=== PATIENT | male | born 1970 | race Two or more races ===

== ENCOUNTER 2022-10-29 10:05 | Observation (INO) ==
--- NOTE | 2022-10-29 10:23 | Emergency Department Note ---
Impression & Plan NSTEMI (non-ST elevated myocardial infarction), Tobacco abuse ED Provider Note Name: ELIO HOLGUIN Age: 52 Sex: M Arrives Via: Ambulance Informant: Patient. 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 Patient does have a history of smoking but denies other past medical history. Denies family past medical history. Patient only speaks [place] and thus toll relief operator was used. Initial EKG unremarkable patient is without pain and is comfortable. He is agreeable to hospitalization on arrival given I wanted to make sure that he was going to be agreeable with this while the toll relief operator was there. Initial labs are remarkable for an elevated troponin. This is consistent with his ACS that his symptoms are quite concerning for. He has a mildly elevated D- dimer. This is nonspecific given his minimally elevated he has no further chest pain he has no shortness of breath he has no hypoxia he has no calf pain or swelling. Patient does not have symptoms consistent with a dissection. I do not think that CTA would be indicated at this time especially given he will likely need heparin anyways. I discussed the case with on-call cardiology Dr. Sims who agreed with starting heparin. I did obtain a repeat EKG which is continued stable and no further PACs. Patient was discussed with hospitalist who will bring the patient in for further management. Prior Medical Record and Triage/Nursing Notes reviewed by Me Extensive discussion with EMS and review of previous hospital EMS record and rhythm strips Differentials:ACS, PE, dissection, pneumothorax, abdominal infection, multiple other pathologies considered. Vital Signs: reviewed and remarkable for no significant abnormalities Interventions: Heparin bolus and drip Labs:Reviewed and remarkable for elevated troponin mildly elevated D-dimer Imagin view chest x-ray interpreted by me no pneumothorax, lobar infiltrate nor enlarged mediastinum EKG:As per my interpretation. Indication chest pain. Normal sinus rhythm at 66 bpm and a QTC of 419. There is no ectopy nor ischemia. Cardiac/Tele Monitoring: Cardiac Monitoring: An Order was placed for continuous cardiac monitoring. The monitor shows a rate of 65 with a normal sinus rhythm. Consults:Dr Bethany FRANKLIN Cardiology, Dr Melvi FRANKLIN Hospitalist Plan: Disposition:Hospitalization. Condition: Good History of Present Illness:52-year-old gentleman arrives for evaluation of chest pain. 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 He notes he has been having on and off chest pains for the last few months. Today however he developed severe crushing left chest pain into his left arm. Denies any nausea, vomiting, syncope, shortness of breath, neck pain or other concerning signs or symptoms. Unknown was called and he was given aspirin and sublingual nitro by EMS. This resulted in resolution of his pain. Patient states he is no longer having any pain. He has no history of CAD. He states he takes no medications. He admits that he smokes daily. Denies any family history of CAD. Patient does travel constantly for his job. Denies other symptoms. Past Medical History:Denies medical history Past Surgical History:Denies previous surgeries Family History:Denies family history of cardiac disease Social History:, daily smoker, long-bus driver supervisor, lives in [place], speaks only [place] Home Medications:none Allergies:NKDA Vitals:Blood Pressure: 120/60, Pulse 70, RR 17, T 36.7C, O2 98% on RA Physical Exam: GENERAL: Patient is well appearing and in no acute distress. EYES: No scleral icterus, unremarkable pupils. ENT: Mucous membranes moist, no nasal congestion. NECK: No masses appreciated, nomeningismus, trachea is midline. RESPIRATORY: No dyspnea. Clear to auscultation and equal bilaterally. No wheeze, no rhonchi. CARDIOVASCULAR: Regular rate and rhythm.No murmurs, rubs, gallops appreciated. GASTROINTESTINAL: Abdomen soft, non-tender, no peritonitis. EXTREMITIES: Normal motion all extremities, no cyanosis, no edema. NEUROLOGIC: Alert and oriented, no focal weakness SKIN: No rash, no jaundice, no diaphoresis. PSYCH: Appropriate GCS: 15 ED Course: Times/Reassessments: Patient stable on repeat evaluations Critical Care: I have personally spent 35 minutes of critical care time in the direct management of this patient. NSTEMI started on heparin. This was a life/limb threatening event. This 35 minutes is in excess of all separately billable procedures. Francisco Graham MD Past Med/Surg History Social History Smoking Status: Current every day smoker Preferred Language: [place] Korean Communication Tools: IPad Feels Safe at Home: Yes Allergies Allergies Allergy/AdvReac Type Severity Reaction Status Date / Time No Known Allergies Allergy Unverified 10/29/22 11:39 Home Meds Home Medications Medication Instructions Recorded Confirmed No Known Home Medications 10/29/22 10/29/22 Results & Data (ED) Vital Signs Vital Signs - 24 hr 10/29/22 10:10 10/29/22 10:19 10/29/22 11:03 Temperature 36.7 C Temperature Source Oral Pulse Rate 78 74 65 Respiratory Rate 20 19 17 Respiratory Effort / Characteristics Non-Labored Spontaneous Respiratory Depth Normal Respiratory Pattern Regular Blood Pressure 132/72 132/72 125/76 Blood Pressure Mean 92 92 92 Blood Pressure Position Semi-fowlers Pulse Oximetry 97 98 Oxygen Delivery Method Room Air Sepsis Recent Fever Within 48 Hours No Sepsis New/Unexplained Change in Mental Status N/A Sepsis Action Taken by Nursing No Action Required 10/29/22 12:30 Temperature Temperature Source Pulse Rate 77 Respiratory Rate 17 Respiratory Effort / Characteristics Respiratory Depth Respiratory Pattern Blood Pressure 152/95 H Blood Pressure Mean 114 Blood Pressure Position Pulse Oximetry 98 Oxygen Delivery Method Room Air Sepsis Recent Fever Within 48 Hours Sepsis New/Unexplained Change in Mental Status Sepsis Action Taken by Nursing Laboratory Data 10/29/22 10:25 10/29/22 10:25 Lab Results 10/29/22 10/29/22 10/29/22 Range/Units 10:25 10:25 10:25 WBC 6.61 (4.8-10.8) K/ul RBC 5.10 (4.70-6.10) M/uL Hgb 15.8 (14.0-18.0) g/dl Hct 46.1 (42.0-52.0) % MCV 90.4 (80.0-100.0) fL MCH 31.0 (25.0-34.0) pg MCHC 34.3 (32.0-36.0) g/dL RDW Std Deviation 44.3 (36.4-46.3) fL RDW Coeff of Fernando 13.2 (11.5-14.5) % Plt Count 226 (130-400) K/uL MPV 9.9 (9.4-12.4) fL Immature Gran % (Auto) 0.3 % Neut % (Auto) 55.2 % Lymph % (Auto) 34.5 % Marshall % (Auto) 8.3 % Eos % (Auto) 1.1 % Baso % (Auto) 0.6 % Neut # (Auto) 3.65 (1.40-6.50) K/uL Lymph # (Auto) 2.28 (1.2-3.4) K/uL Marshall # (Auto) 0.55 (0.11-0.59) K/uL Eos # (Auto) 0.07 (0-0.50) K/uL Baso # (Auto) 0.04 (0-0.2) K/uL Immature Gran # (Auto) 0.02 (0.01-0.20) K/uL PT 12.3 H (9.0-12.0) Seconds INR 1.2 H (0.9-1.1) APTT 26.3 (21.0-31.0) Seconds PTT Ratio 1.0 D-Dimer 580 H* (0-500) ug/L FEU Sodium 138 (136-145) mmol/L Potassium 3.8 (3.5-5.1) mmol/L Chloride 110 H (98-107) mmol/L Carbon Dioxide 23 (21-32) mmol/L Anion Gap 5 (3-11) BUN 12 (6-23) mg/dl Creatinine 0.99 (0.6-1.4) mg/dl Est Cr Clr Drug Dosing 106.4 ml/min Est GFR ( Amer) 101.1 ml/min Est GFR (Non-Af Amer) 87.2 ml/min BUN/Creatinine Ratio 12.1 (10-20) Glucose 96 (70-99(Fasting)) mg/dl Calcium 8.7 (8.5-10.1) mg/dl Magnesium 1.8 (1.7-2.4) mg/dl Total Bilirubin 0.7 (0.2-1.0) mg/dl Direct Bilirubin 0.1 (0-0.2) mg/dl AST 17 (13-39) U/L ALT 18 (7-52) U/L Alkaline Phosphatase 84 (34-104) U/L Troponin I High Sens 189.2 H* (0-20) pg/ml Total Protein 6.6 (6.0-8.3) gm/dl Albumin 4.0 (3.4-5.0) gm/dl Lipase 15 (11-82) U/L TSH (0.300-4.500) uIu/ml SARS-CoV-2, RNA, NAAT (NEGATIVE) 10/29/22 10/29/22 Range/Units 10:25 10:45 WBC (4.8-10.8) K/ul RBC (4.70-6.10) M/uL Hgb (14.0-18.0) g/dl Hct (42.0-52.0) % MCV (80.0-100.0) fL MCH (25.0-34.0) pg MCHC (32.0-36.0) g/dL RDW Std Deviation (36.4-46.3) fL RDW Coeff of Fernando (11.5-14.5) % Plt Count (130-400) K/uL MPV (9.4-12.4) fL Immature Gran % (Auto) % Neut % (Auto) % Lymph % (Auto) % Marshall % (Auto) % Eos % (Auto) % Baso % (Auto) % Neut # (Auto) (1.40-6.50) K/uL Lymph # (Auto) (1.2-3.4) K/uL Marshall # (Auto) (0.11-0.59) K/uL Eos # (Auto) (0-0.50) K/uL Baso # (Auto) (0-0.2) K/uL Immature Gran # (Auto) (0.01-0.20) K/uL PT (9.0-12.0) Seconds INR (0.9-1.1) APTT (21.0-31.0) Seconds PTT Ratio D-Dimer (0-500) ug/L FEU Sodium (136-145) mmol/L Potassium (3.5-5.1) mmol/L Chloride (98-107) mmol/L Carbon Dioxide (21-32) mmol/L Anion Gap (3-11) BUN (6-23) mg/dl Creatinine (0.6-1.4) mg/dl Est Cr Clr Drug Dosing ml/min Est GFR ( Amer) ml/min Est GFR (Non-Af Amer) ml/min BUN/Creatinine Ratio (10-20) Glucose (70-99(Fasting)) mg/dl Calcium (8.5-10.1) mg/dl Magnesium (1.7-2.4) mg/dl Total Bilirubin (0.2-1.0) mg/dl Direct Bilirubin (0-0.2) mg/dl AST (13-39) U/L ALT (7-52) U/L Alkaline Phosphatase (34-104) U/L Troponin I High Sens (0-20) pg/ml Total Protein (6.0-8.3) gm/dl Albumin (3.4-5.0) gm/dl Lipase (11-82) U/L TSH 1.048 (0.300-4.500) uIu/ml SARS-CoV-2, RNA, NAAT NEGATIVE (NEGATIVE) Administered Medications Heparin Sodium/Dextrose (Heparin Sodium/Dextrose) 25,000 units in 500 mls @ 20 mls/hr IV .Q24H [facility]; Protocol Stop: 11/28/22 13:14 Last Admin: 10/29/22 13:58 Dose: 1,000 units/hr, 20 mls/hr Documented By: CA Co-signed By: LUNA Discontinued Medications Heparin Sodium (Porcine) (Heparin Sod (Porcine) 1000 Unit/Ml) 1 units IV NOW ONE Stop: 10/29/22 13:07 Last Admin: 10/29/22 13:57 Dose: 4,000 units Documented By: CA Co-signed By: LUNA Imaging Data Radiologist's Impression: Chest X-Ray 10/29/22 10:09 XR chest 1V portable HISTORY: Atypical chest pain COMPARISON: None. FINDINGS: The lungs are clear. Cardiac silhouette is normal in size. No pleural effusions. No pneumothorax. IMPRESSION: No acute process. ACT 112: Negative or not required by law. Electronically signed by: Niels Lawler M.D. 10/29/2022 10:49 AM Discharge Plan Visit Data Chief Complaint: Chest Pain Stated Complaint: CHEST PAIN ED Provider: Francisco Graham Discharge Problem: NSTEMI (non-ST elevated myocardial infarction), Tobacco abuse Patient Disposition: Admitted As Inpatient Discharge Instructions Interventions: ED Discharge Assessment Last Done: 10/29/22 14:05
[2022-10-29 10:48] LABS: Basophils # (auto) 0.04 K/uL (0-0.2); Basophils % (auto) 0.6 %; Eosinophils # (auto) 0.07 K/uL (0-0.50); Eosinophils % (auto) 1.1 %; Hematocrit (blood only) 46.1 % (42.0-52.0); Hemoglobin 15.8 g/dl (14.0-18.0); Immature Granulocytes # (auto) 0.02 K/uL (0.01-0.20); Immature Granulocytes % (auto) 0.3 %; Lymphocytes # (auto) 2.28 K/uL (1.2-3.4); Lymphocytes % (auto) 34.5 %; Mean Corpuscular Hgb Conc 34.3 g/dL (32.0-36.0); Mean Corpuscular Volume 90.4 fL (80.0-100.0); Mean Platelet Volume 9.9 fL (9.4-12.4); Monocytes # (auto) 0.55 K/uL (0.11-0.59); Monocytes % (auto) 8.3 %; Neutrophils # (auto) 3.65 K/uL (1.40-6.50); Neutrophils % (auto) 55.2 %; Platelet Count 226 K/uL (130-400); RDW Coefficient of Variation 13.2 % (11.5-14.5); RDW Standard Deviation 44.3 fL (36.4-46.3); White Blood Count 6.61 K/ul (4.8-10.8)
--- NOTE | 2022-10-29 10:50 | XRay Report ---
XR chest 1V portable HISTORY: Atypical chest pain COMPARISON: None. FINDINGS: The lungs are clear. Cardiac silhouette is normal in size. No pleural effusions. No pneumot horax. IMPRESSION: No acute process. ACT 112: Negative or not required by law. Electronically signed by: Niels Lawler M.D. 10/29/2022 10:49 AM
[2022-10-29 11:05] LABS: INR 1.2 (0.9-1.1); Partial Thromboplastin Time 26.3 Seconds (21.0-31.0); Prothrombin Time 12.3 Seconds (9.0-12.0)
[2022-10-29 11:20] LABS: Troponin I High Sensitivity 189.2 pg/ml (0-20)
[2022-10-29 11:24] LABS: D Dimer 580 ug/L FEU (0-500)
[2022-10-29 12:28] LABS: Bilirubin Direct 0.1 mg/dl (0-0.2); Bilirubin,Total 0.7 mg/dl (0.2-1.0); Calcium 8.7 mg/dl (8.5-10.1); Magnesium 1.8 mg/dl (1.7-2.4); Potassium 3.8 mmol/L (3.5-5.1)
[2022-10-29 12:34] LABS: BUN Creatinine Ratio 12.1 (10-20); Creatinine Clr Calc Pharmacy 106.4 ml/min; Est GFR (African American) 101.1 ml/min; Est GFR (Non-African American) 87.2 ml/min; Total Protein 6.6 gm/dl (6.0-8.3)
[2022-10-29] MEDS ORDERED: Heparin IV Adult Wt-Based Standard WITH Bolus Protocol IV STA (12:42)
--- NOTE | 2022-10-29 12:49 | History & Physical Report ---
Date of Service October 29, 2022 Assessment & Plan (1) NSTEMI (non-ST elevated myocardial infarction): Plan: -Admit to the PCU/tele -The patient is currently afebrile, hemodynamically stable, and stable on RA -Patient called EMS for chest pain, S/P 324 mg PO aspirin and one dose of SL nitro with resolution of his symptoms. ECG is without acute ST segment or T-wave changes but his initial high sensitivity trop is elevated at 189. -Cardiology was consulted by the ED staff and was in agreement with starting a Heparin Drip which is currently running -The patient denies a previous history of HTN, DM, and hyperlipidemia but is a daily smoker -Will start him on 25 mg PO BID Metoprolol Tartrate, High Dose Statin therapy with 80 mg PO Lipitor daily, 81 mg PO Aspirin daily (starting tomorrow), 300 mg Plavix Now followed by 75 mg PO daily, and will continue him on the Heparin drip for now. -Will order prn SL Nitro for chest pain; explained to the patient that he should let us know if any of his symptoms return so we can re-evaluate him -Continue to monitor on tele, will obtain a TTE for further evaluation, trend troponin q6h overnight -Will start the patient of 20 mg IV famotidine daily to prevent GI bleeds with his previous history. Instructed the patient to monitor for any signs of bleeding and let us know immediately if he would notice any. -Will order am lipid panel and A1C -BL SCDs + current anticoagulation for DVT PPX -AM CBC, BMO, MAG, PT/INR, A1C and lipid panel (2) Tobacco abuse: Plan: -Smokes approximately 1 PPD -Continue to stress smoking cessation -Nicotine patch ordered Plan The patient was seen with and discussed with Dr. Ogden at the time of the admission History of Present Illness Chief Complaint: Chest pain Primary Care Provider: NO PCP Amirah is a 52 year old (S[place]an is his first language) male daily smoker with no other previous PMH who presented to the [facility] ED on 10/29/22 with a chief complaint of chest pain. Per the ED staff, the patient is a long-auto hauler from [place]. The patient was brought in by EMS, prior to arrival he was given 324 mg PO aspirin and 1 SL nitro and his symptoms resolved. In the ED the patient was found to be afebrile, hemodynamically stable, and stable on RA. Labs were remarkable for a CBC WNL, INR of 1.2, D-dimer of 580,cr of 0.99, LFTs WNL, initial high sensitivity trop of 189, chloride of 110, AG of 5 with a bicarb of 23, stable electrolytes, TSH WNL, and negative covid screen. His ECG showed Normal sinus rhythm Normal ECG When compared with ECG of 29-OCT-2022 10:17, (unconfirmed) Premature ventricular complexes are no longer Present. Chest xray was read as no acute process. The ED staff spoke with Cardiology who was in agreement with starting the patient on a Heparin drip. At the time of the exam the patient was resting comfortably in bed in no acute distress. A video mixing operator was used to communicate with the patient during the history and exam. He states that he began to experience an 8/10, burning pain on the left side of his chest earlier this morning. He states that the pain also radiated into his left arm. He states that he has never had this pain before and he did not take any medications to treat his symptoms. When asked, he denies previous chronic medical problems such as HTN, hyperlipidemia, DM, and asthma. He states that he was treated with an antibiotic approximately 2-3 weeks ago, he is unable to explain what type of infection he was treated for. He denies being on chronic medications either prescription or OTC. He is a current smoker, smoking 1PPD and denies alcohol and other recreational drug use. The patient confirms that he is currently without symptoms at the time of the exam. We explained that he had a heart attack and the next steps in treatment would be to start IV heparin for anticoagulation, start a Beta Vernon to help control his HR and help to prevent dangerous arrhythmias, a statin to help reduce his cholesterol, and aspirin to help with possible blockages in his coronary arteries. We explained that since his ECG is currently normal and his symptoms have resolved there is no emergent need for him to have a Heart Cath at this time. We explained that this procedure is important to help look for any treat any blockages in his coronary arteries. We explained the general steps of a heart catheterization and explained that it is not an invasive procedure like open heart surgery. The patient was still hesitant to stay as he said he was feeling better and lives close to the hospital if he needed to come back. We strongly recommended he stay to begin medical therapy and to be monitoring on telemetry as a new WA increases his risk of dangerous arrhythmias which could lead to increased heart damage and even . We explained that he would not be getting a heart cath immediately and reiterated that we would be initiating medical therapy and monitoring him. We explained that if he were to have ret urning symptoms of concerning changes in his labs or heart rhythm, these would be an indication for an emergent heart cath. We explained that if he were to leave and need to come back he would likely have to wait in the waiting room or come back from ambulance, either of which could delay life-saving treatment. The patient stated that he has a close friend who is a Physician and he wanted to speak with his friend before making a decision. We offered to stay and speak with he and his friend regarding the situation and he was in agreement. After discussions with his friend the patient is now in agreement with being admitted. He states that he is in agreement with all of our recommendations and is fine with a heart cath if needed. He denies previous allergies to any medications or other substances. He denies recent fevers, chills, headache, new cough, abdominal pain, nausea, vomiting, dysuria, hematuria and recent trauma. When asked about bloody bowel movements or melena he states that in the past he has had blood in his bowels when he drinks alcohol. He denies recent bright red blood in his stool. When asked about melena or dark stool he states that his stool may be darker but is not sure. We discussed code status, the patient wishes to be a full code. If he could not make medical decisions himself he would want is (Amanda [phone]) to make decisions. When asked, he stat es that his speaks Romanian and would not need an housekeeper cleaning cooking if we would need to call her. Please refer to Dr. Ogden's attestation for any changes to the treatment plan Allergies Allergy/AdvReac Type Severity Reaction Status Date / Time No Known Allergies Allergy Unverified 10/29/22 11:39 Home Medications Medication Instructions Recorded Confirmed Type No Known Home Medications 10/29/22 10/29/22 History Past Med/Surg History Social History Smoking Status: Current every day smoker Cigarettes Per Day: 20; Second Hand Exposure: No; Do You Dip or Chew Tobacco: No; Tobacco Cessation Education Requested by Patient: No Hx Alcohol Use: No Hx Substance Use: No Preferred Language: [place] Communication Ability: Effective Communication Tools: IPad, Language Line Wool Brusher, Facial Expression, Physical Gestures and Lip Movement/Reading Wool Brusher Required: Yes and Voice Beliefs That Will Affect Care: None Current Living Situation: Spouse Other Information That Helps Us Care for You: No Feels Safe at Home: Yes Safety Concerns: Feels Safe At This Time Assistive Devices: None Review of Systems Review of Systems: Denies current fever, chills, headache, changes in vision, hearing, taste, and smell, chest pain, SOB, cough, abdominal pain, nausea, vomiting, diarrhea, hematemesis, melena, dysuria, hematuria, and recent falls. All systems have been reviewed and are otherwise negative. Physical Exam Physical Exam: Physical Exam: General: In no acute distress, stated age, well-nourished, good hygiene HEENT: Normocephalic, atraumatic, no scleral icterus, pupils around round, symmetrical, and reactive to light, moist mucus membranes, trachea midline, no thyromegaly Chest/Pulm: No respiratory distress, symmetrical chest expansion, clear breath sounds throughout Cardiac: RRR, no murmurs noted Abdomen: Negative for ascites and bruising, normoactive bowel sounds, soft, non-tender to palpation throughout Musculoskeletal: Symmetrical and without signs of acute trauma, upper and lower extremities with full ROM, no atrophy, spasticity, or flaccidity Extremities: Radial, dorsalis pedis, and posterior tibial pulses are intact and symmetrical, no edema noted in the BL LE's Skin: Warm, dry, no rashes , lesions, or scars noted Neuro: Alert and oriented to person, place, month, year, no focal defects, CN II-XII tested and intact, no tremors noted Psych: No acute distress, calm and cooperative during the exam Results & Data Results & Data ([facility]) Vital Signs (Past 12 Hours) Vital Signs Temp Pulse Resp BP Pulse Ox O2 Del Method 10/29/22 12:30 77 17 152/95 H 98 Room Air 10/29/22 11:03 65 17 125/76 98 10/29/22 10:19 74 19 132/72 10/29/22 10:10 36.7 C 78 20 132/72 97 Room Air Laboratory Results Abnormal lab results 10/29/22 10/29/22 Range/Units 10:25 10:25 PT 12.3 H (9.0-12.0) Seconds INR 1.2 H (0.9-1.1) D-Dimer 580 H* (0-500) ug/L FEU Chloride 110 H (98-107) mmol/L Troponin I High Sens 189.2 H* (0-20) pg/ml Diagnostic Findings Chest X-Ray 10/29/22 10:09 XR chest 1V portable HISTORY: Atypical chest pain COMPARISON: None. FINDINGS: The lungs are clear. Cardiac silhouette is normal in size. No pleural effusions. No pneumothorax. IMPRESSION: No acute process. ACT 112: Negative or not required by law. Electronically signed by: Niels Lawler M.D. 10/29/2022 10:49 AM ECG Additional Comments: Normal sinus rhythm Normal ECG When compared with ECG of 29-OCT-2022 10:17, (unconfirmed) Premature ventricular complexes are no longer Present Code Status & VTE Plan Code Status Full Code Supervising Physician Co-Signing Physician Notes I personally saw and examined the patient. I verified all herman points and agree with Lukas Fernandes PA-C with the following exceptions and/or additions: 52 year old male admission for resting ches pain. High risk factors for WA and elevated troponin in the ER. Communicated with patient in conjunction with PA using iPad [place] mixing operator. Extensive conversation with patient explain high risk of discharge at this time as he initial said he felt fine and wanted to leave against medical advice. Eventually he was able to discuss with his primary outpatient physician and convinced the patient to stay. O/E A&Ox3, HS1+2, no murmurs, RRR, occasional PVC on monitor, Chest CTAB, Abdo SNT, no pedal edema A/P NSTEMI - ASA, Clopidogrel, metoprolol, heparin low dose IV with bolus, atorvastatin, TTE, HbA1C and lipid panel with AM labs. Agree with famotidine for GI prophlaxis given history. Discussed cardiac catheterization likely to occur on Monday but he should let us know if his chest pain reoccurs, consult cardiology for tomorrow. PG Care Time/CCT Total # of Minutes Spent Total Time Spent with Patient: Total time spent is greater than 50% in coordination of care (as documented) at patient's floor/unit and/or counseling patient: C[place] [address] INT INP/OBS CARE MIN Patient Type Established Medical Decision Making High Complexity Diagnoses NSTEMI (non-ST elevated myocardial infarction) I21.4 Tobacco abuse Z72.0
[2022-10-29] MEDS ORDERED: HEPARIN SOD (PORCINE) 1000 UNIT/ML IV ONE ×3 (12:57→20:45)
[2022-10-29] MEDS ORDERED: HEPARIN SODIUM/DEXTROSE 25,000 UNITS/500 ML BAG IV SCH (13:00)
[2022-10-29] MEDS ORDERED: Heparin IV Adult Wt-Based Standard WITH Bolus Protocol IV SCH (13:00)
[2022-10-29] MEDS: HEPARIN SODIUM/DEXTROSE 25,000 UNITS/500 ML BAG IV SCH (13:58)
[2022-10-29] MEDS ORDERED: Heparin IV Adult Wt-Based Low-Dose WITH Bolus Protocol IV STA (14:00)
[2022-10-29] MEDS ORDERED: NITROGLYCERIN SL 0.4 MG/TAB TAB SL PRN (14:15)
[2022-10-29] MEDS ORDERED: ACETAMINOPHEN 325 MG TAB PO PRN (14:15)
[2022-10-29] MEDS ORDERED: CLOPIDOGREL BISULFATE 300 MG TAB PO STA (14:34)
[2022-10-29] MEDS: ATORVASTATIN 40 MG TAB PO SCH (17:46)
[2022-10-29] MEDS: FAMOTIDINE 20 MG in SYRINGE 3 ML IV SCH (17:46)
[2022-10-29] MEDS: METOPROLOL TARTRATE 25 MG TAB PO SCH ×2 (17:47→20:03)
[2022-10-29] MEDS: NICOTINE 21 MG/24 HR TDSY TD SCH (18:53)
--- NOTE | 2022-10-29 19:31 | XCELERA ---
[id number]
[2022-10-29 19:40] LABS: Partial Thromboplastin Ratio 1.2; Partial Thromboplastin Time 33.3 Seconds (21.0-31.0)
[2022-10-29] MEDS ORDERED: POTASSIUM CHLORIDE CRTAB 20 MEQ TABCR PO STA (21:45)
[2022-10-29] MEDS ORDERED: MAGNESIUM SULFATE / D5W 1 GM/100 ML BAG IV ONE (21:45)
[2022-10-30 03:38] LABS: INR 1.1 (0.9-1.1); Partial Thromboplastin Ratio 1.4; Partial Thromboplastin Time 38.2 Seconds (21.0-31.0); Prothrombin Time 11.8 Seconds (9.0-12.0)
[2022-10-30 06:41] LABS: Hematocrit (blood only) 46.4 % (42.0-52.0); Hemoglobin 16.6 g/dl (14.0-18.0); Mean Corpuscular Hemoglobin 31.6 pg (25.0-34.0); Mean Corpuscular Hgb Conc 35.8 g/dL (32.0-36.0); Mean Corpuscular Volume 88.2 fL (80.0-100.0); Platelet Count 225 K/uL (130-400); RDW Coefficient of Variation 13.2 % (11.5-14.5); RDW Standard Deviation 42.5 fL (36.4-46.3); Red Blood Count 5.26 M/uL (4.70-6.10); White Blood Count 7.87 K/ul (4.8-10.8)
[2022-10-30 07:00] LABS: Calcium 9.5 mg/dl (8.5-10.1); Magnesium 2.2 mg/dl (1.7-2.4); Potassium 4.2 mmol/L (3.5-5.1)
[2022-10-30 07:06] LABS: BUN Creatinine Ratio 10.4 (10-20); Chol HDL Ratio 8.7 (0-5); Creatinine Clr Calc Pharmacy 99.4 ml/min; Est GFR (African American) 93.1 ml/min; Est GFR (Non-African American) 80.3 ml/min
--- NOTE | 2022-10-30 07:28 | Electrocardiogram Report ---
Test Reason : Blood Pressure : / mmHG Vent. Rate : 075 BPM Atrial Rate : 075 BPM P-R Int : 132 ms QRS Dur : 102 ms QT Int : 392 ms P-R-T Axes : -24 039 041 degrees QTc Int : 437 ms Sinus rhythm with sinus arrhythmia with occasional Premature ventricular complexes Otherwise normal ECG No previous ECGs available Confirmed by Clarence Sims ([id number]) on 10/30/2022 7:28:21 AM Referred By: REFERRED SELF Confirmed By:Ulysses Sims
--- NOTE | 2022-10-30 07:29 | Electrocardiogram Report ---
Test Reason : Blood Pressure : / mmHG Vent. Rate : 066 BPM Atrial Rate : 066 BPM P-R Int : 144 ms QRS Dur : 104 ms QT Int : 400 ms P-R-T Axes : 045 046 052 degrees QTc Int : 419 ms Normal sinus rhythm Normal ECG When compared with ECG of 29-OCT-2022 10:17, (unconfirmed) Premature ventricular complexes are no longer Present Confirmed by Clarence Sims ([id number]) on 10/30/2022 7:28:49 AM Referred By: REFERRED SELF Confirmed By:Ulysses Sims
[2022-10-30] MEDS: ASPIRIN 81 MG ECTAB PO SCH (08:11)
[2022-10-30] MEDS: ATORVASTATIN 40 MG TAB PO SCH (08:12)
[2022-10-30] MEDS: METOPROLOL TARTRATE 25 MG TAB PO SCH ×2 (08:12→20:09)
[2022-10-30] MEDS: CLOPIDOGREL BISULFATE 75 MG TAB PO SCH (08:12)
--- NOTE | 2022-10-30 09:39 | Cardiology Consultation ---
Date of Consultation October 30, 2022 Assessment & Plan (1) NSTEMI (non-ST elevated myocardial infarction): (2) Tobacco abuse: (3) Hyperlipidemia: Plan 1. NSTEMI: His symptoms and biomarker elevation are consistent with an acute coronary syndrome and associated NSTEMI. The rise and fall of his markers corresponds quite well with the episode described. We discussed the benefits of coronary angiography and possible coronary intervention. We discussed medical options. I recommended cardiac catheterization this tends to produce superior results. I described the risks and benefits to the patient with the critical care specialist. He wished to discuss this with his own physician but we would tentatively plan on proceeding tomorrow. Will continue systemic heparin, daily aspirin, Plavix, beta-blockade and lipid agent. 2. Tobacco abuse: Counseled regarding the need to quit 3. Hyperlipidemia: High LDL and triglycerides. Atorvastatin initiated History of Present Illness Reason for Consultation: Chest pain, elevated troponin Requesting Physician: Melvi Attending Physician: Iam Morgan MD History of Present Illness The patient is a 52-year-old gentleman without a known history of cardiac disease. He does not speak Yoruba well and a proprietary critical care specialist was employed for today's interview. The patient presented to the emergency room yesterday for an episode of chest pain. He states that for a few months he had been having some symptoms of chest discomfort. These episodes appear to be fairly random in very between the left and right precordium. The did not appear to be associated with exertion and resolve without intervention. 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 This was more severe and extended in duration and some other episodes. He was concerned about the symptoms and called EMS. He reports the symptoms having resolved in approximately 15 minutes without any specific intervention. There is no radiation to the jaw or back. He stated the re was some mild dyspnea associated with these symptoms. He has not had any recurrence since being in the hospital. He reports being very sedentary individual. He states that he does not perform regular exercise or strenuous activity. He has not been aware of palpitations. He denies symptoms of dizziness or lightheadedness. He cannot recall any episodes of syncope. While he did not say that he sleeps poorly, he stated that he does not sleep very often. No lower extremity edema by report. Allergies Allergy/AdvReac Type Severity Reaction Status Date / Time No Known Allergies Allergy Unverified 10/29/22 11:39 Home Medications Medication Instructions Recorded Confirmed Type No Known Home Medications 10/29/22 10/29/22 History Patient History Social History Smoking Status: Current every day smoker Cigarettes Per Day: 20; Second Hand Exposure: No; Do You Dip or Chew Tobacco: No; Tobacco Cessation Education Requested by Patient: No Hx Alcohol Use: No Hx Substance Use: No Preferred Language: Gambian Communication Ability: Effective Communication Tools: IPad, Language Line Skates Operator, Facial Expression, Physical Gestures and Lip Movement/Reading Skates Operator Required: Yes and Voice Beliefs That Will Affect Care: None Current Living Situation: Spouse Other Information That Helps Us Care for You: No Feels Safe at Home: Yes Safety Concerns: Feels Safe At This Time Assistive Devices: None Review of Systems Review of Systems: Per HPI. Physical Exam Physical Exam: The patient is alert and oriented. Mood and affect appeared normal. He answered all questions appropriately. HEENT: Pupils are equal and reactive to light and accommodation. Extraocular movements are intact. The sclerae are anicteric. Neuro: Cranial nerves intact Neck: Patient's neck is supple. He has palpable carotid pulses bilaterally without bruits on auscultation. There is no evidence of jugular venous distention. The thyroid is not enlarged. Lungs: Clear to auscultation bilaterally. He has good air movement without use of accessory muscles. No rales wheezes or rhonchi. Cardiac: Heart demonstrates a regular rate and rhythm. Normal S1 and S2. No murmurs on examination. Pulses: The patient has palpable radial pulses bilaterally that are equal in intensity Extremities: There was no evidence of hypoperfusion. There is no cyanosis or clubbing. There is no edema. Skin: I did not appreciate any rashes on examination today. Results & Data ([facility]) Vital Signs (Past 12 Hours) Vital Signs Temp Pulse Resp BP Pulse Ox O2 Del Method 10/30/22 07:40 36.7 C 63 18 125/75 97 Room Air 10/30/22 03:34 36.9 C 62 18 113/73 96 Room Air 10/29/22 22:06 36.5 C 66 16 131/77 96 Room Air Laboratory Results Abnormal Lab Results 10/29/22 10/29/22 10/29/22 10:25 10:25 10:25 WBC 6.61 RBC 5.10 Hgb 15.8 Hct 46.1 MCV 90.4 MCH 31.0 MCHC 34.3 RDW Std Deviation 44.3 RDW Coeff of Fernando 13.2 Plt Count 226 MPV 9.9 Immature Gran % (Auto) 0.3 Neut % (Auto) 55.2 Lymph % (Auto) 34.5 [place] % (Auto) 8.3 Eos % (Auto) 1.1 Baso % (Auto) 0.6 Neut # (Auto) 3.65 Lymph # (Auto) 2.28 [place] # (Auto) 0.55 Eos # (Auto) 0.07 Baso # (Auto) 0.04 Immature Gran # (Auto) 0.02 PT 12.3 H INR 1.2 H APTT 26.3 PTT Ratio 1.0 D-Dimer 580 H* Sodium 138 Potassium 3.8 Chloride 110 H Carbon Dioxide 23 Anion Gap 5 BUN 12 Creatinine 0.99 Est Cr Clr Drug Dosing 106.4 Est GFR ( Amer) 101.1 Est GFR (Non-Af Amer) 87.2 BUN/Creatinine Ratio 12.1 Glucose 96 Calcium 8.7 Magnesium 1.8 Total Bilirubin 0.7 Direct Bilirubin 0.1 AST 17 ALT 18 Alkaline Phosphatase 84 Troponin I High Sens 189.2 H* Total Protein 6.6 Albumin 4.0 Triglycerides Cholesterol LDL Cholesterol, Calc VLDL Cholesterol, Calc HDL Cholesterol Cholesterol/HDL Ratio Lipase 15 TSH SARS-CoV-2, RNA, NAAT 10/29/22 10/29/22 10/29/22 10:25 10:45 12:59 WBC RBC Hgb Hct MCV MCH MCHC RDW Std Deviation RDW Coeff of Fernando Plt Count MPV Immature Gran % (Auto) Neut % (Auto) Lymph % (Auto) [place] % (Auto) Eos % (Auto) Baso % (Auto) Neut # (Auto) Lymph # (Auto) [place] # (Auto) Eos # (Auto) Baso # (Auto) Immature Gran # (Auto) PT INR APTT PTT Ratio D-Dimer Sodium Potassium Chloride Carbon Dioxide Anion Gap BUN Creatinine Est Cr Clr Drug Dosing Est GFR ( Amer) Est GFR (Non-Af Amer) BUN/Creatinine Ratio Glucose Calcium Magnesium Total Bilirubin Direct Bilirubin AST ALT Alkaline Phosphatase Troponin I High Sens 595.7 H* D Total Protein Albumin Triglycerides Cholesterol LDL Cholesterol, Calc VLDL Cholesterol, Calc HDL Cholesterol Cholesterol/HDL Ratio Lipase TSH 1.048 SARS-CoV-2, RNA, NAAT NEGATIVE 10/29/22 10/29/22 10/30/22 18:01 19:11 00:25 WBC RBC Hgb Hct MCV MCH MCHC RDW Std Deviation RDW Coeff of Fernando Plt Count MPV Immature Gran % (Auto) Neut % (Auto) Lymph % (Auto) [place] % (Auto) Eos % (Auto) Baso % (Auto) Neut # (Auto) Lymph # (Auto) [place] # (Auto) Eos # (Auto) Baso # (Auto) Immature Gran # (Auto) PT INR APTT 33.3 H PTT Ratio 1.2 D-Dimer Sodium Potassium Chloride Carbon Dioxide Anion Gap BUN Creatinine Est Cr Clr Drug Dosing Est GFR ( Amer) Est GFR (Non-Af Amer) BUN/Creatinine Ratio Glucose Calcium Magnesium Total Bilirubin Direct Bilirubin AST ALT Alkaline Phosphatase Troponin I High Sens 895.0 H* D 612.0 H* D Total Protein Albumin Triglycerides Cholesterol LDL Cholesterol, Calc VLDL Cholesterol, Calc HDL Cholesterol Cholesterol/HDL Ratio Lipase TSH SARS-CoV-2, RNA, NAAT 10/30/22 10/30/22 10/30/22 02:47 05:24 05:58 WBC 7.87 RBC 5.26 Hgb 16.6 Hct 46.4 MCV 88.2 MCH 31.6 MCHC 35.8 RDW Std Deviation 42.5 RDW Coeff of Fernando 13.2 Plt Count 225 MPV 10.0 Immature Gran % (Auto) Neut % (Auto) Lymph % (Auto) [place] % (Auto) Eos % (Auto) Baso % (Auto) Neut # (Auto) Lymph # (Auto) [place] # (Auto) Eos # (Auto) Baso # (Auto) Immature Gran # (Auto) PT 11.8 INR 1.1 APTT 38.2 H PTT Ratio 1.4 D-Dimer Sodium 138 Potassium 4.2 Chloride 108 H Carbon Dioxide 26 Anion Gap 4 BUN 11 Creatinine 1.06 Est Cr Clr Drug Dosing 99.4 Est GFR ( Amer) 93.1 Est GFR (Non-Af Amer) 80.3 BUN/Creatinine Ratio 10.4 Glucose 99 Calcium 9.5 Magnesium 2.2 Total Bilirubin Direct Bilirubin AST ALT Alkaline Phosphatase Troponin I High Sens Total Protein Albumin Triglycerides 208 H Cholesterol 262 H LDL Cholesterol, Calc 190 VLDL Cholesterol, Calc 42 H HDL Cholesterol 30 Cholesterol/HDL Ratio 8.7 H Lipase TSH SARS-CoV-2, RNA, NAAT 10/30/22 05:58 WBC RBC Hgb Hct MCV MCH MCHC RDW Std Deviation RDW Coeff of Fernando Plt Count MPV Immature Gran % (Auto) Neut % (Auto) Lymph % (Auto) [place] % (Auto) Eos % (Auto) Baso % (Auto) Neut # (Auto) Lymph # (Auto) [place] # (Auto) Eos # (Auto) Baso # (Auto) Immature Gran # (Auto) PT INR APTT PTT Ratio D-Dimer Sodium Potassium Chloride Carbon Dioxide Anion Gap BUN Creatinine Est Cr Clr Drug Dosing Est GFR ( Amer) Est GFR (Non-Af Amer) BUN/Creatinine Ratio Glucose Calcium Magnesium Total Bilirubin Direct Bilirubin AST ALT Alkaline Phosphatase Troponin I High Sens 407.2 H* D Total Protein Albumin Triglycerides Cholesterol LDL Cholesterol, Calc VLDL Cholesterol, Calc HDL Cholesterol Cholesterol/HDL Ratio Lipase TSH SARS-CoV-2, RNA, NAAT Diagnostic Findings Chest x-ray obtained the time admission not reveal any acute cardiopulmonary process Echocardiogram performed 10/21/2022: Normal LV systolic function without signif icant valvular heart disease. ECG Additional Comments: Serial EKGs were obtained. Normal sinus rhythm without significant ST or T-wave changes. PG Care Time/CCT Total # of Minutes Spent Total Time Spent with Patient: Total time spent is greater than 50% in coordination of care (as documented) at patient's floor/unit and/or counseling patient: Coding Level of Care Code INP/OBS CONSULT LVL 4, 60 MIN Diagnoses NSTEMI (non-ST elevated myocardial infarction) I21.4 Tobacco abuse Z72.0 Hyperlipidemia E78.5
[2022-10-30 11:27] LABS: Partial Thromboplastin Ratio 1.3
[2022-10-30] MEDS: FAMOTIDINE 20 MG in SYRINGE 3 ML IV SCH (12:11)
[2022-10-30] MEDS: NICOTINE 21 MG/24 HR TDSY TD SCH (12:11)
[2022-10-30] MEDS: HEPARIN SODIUM/DEXTROSE 25,000 UNITS/500 ML BAG IV SCH ×2 (12:15→19:26)
[2022-10-30] MEDS ORDERED: HEPARIN SOD (PORCINE) 1000 UNIT/ML IV ONE (12:15)
[2022-10-30] MEDS: SODIUM CHLORIDE 0.9% 1000ML 1,000 ML IV SCH ×2 (12:16→20:17)
--- NOTE | 2022-10-30 17:15 | Hospitalist Progress Note ---
Date of Service October 30, 2022 Assessment & Plan (1) NSTEMI (non-ST elevated myocardial infarction): Plan: Currently on dual platelet agent Continue metoprolol 25 mg twice daily Continue high-dose statin therapy with Lipitor 80 mg daily Continue aspirin 81 mg and Plavix 75 mg daily Continue sublingual nitro Continue telemetry N.p.o. after midnight Continue heparin drip Patient is a candidate for cardiac cath however is undecided (2) Tobacco abuse: Plan: -Smokes approximately 1 PPD -Continue to stress smoking cessation -Nicotine patch ordered Admission and Anticipated Discharge Date Admission Date: October 29, 2022 Subjective No chest pain today, patient has a sedentary lifestyle, heavy smoker 1/2 pack a day, still undecided if he would like to go with cardiac cath or not Review of Systems Review of Systems: Denies current fever, chills, headache, changes in vision, hearing, taste, and smell, chest pain, SOB, cough, abdominal pain, nausea, vomiting, diarrhea, hematemesis, melena, dysuria, hematuria, and recent falls. All systems have been reviewed and are otherwise negative. Physical Exam Physical Exam: The patient is alert and oriented. Mood and affect appeared normal. He answered all questions appropriately. HEENT: Pupils are equal and reactive to light and accommodation. Extraocular movements are intact. The sclerae are anicteric. Neuro: Cranial nerves intact Neck: Patient's neck is supple. He has palpable carotid pulses bilaterally without bruits on auscultation. There is no evidence of jugular venous distention. The thyroid is not enlarged. Lungs: Clear to auscultation bilaterally. He has good air movement without use of accessory muscles. No rales wheezes or rhonchi. Cardiac: Heart demonstrates a regular rate and rhythm. Normal S1 and S2. No murmurs on examination. Pulses: The patient has palpable radial pulses bilaterally that are equal in intensity Extremities: There was no evidence of hypoperfusion. There is no cyanosis or clubbing. There is no edema. Skin: I did not appreciate any rashes on examination today. Results & Data Results & Data ([facility]) Vital Signs (Past 12 Hours) Vital Signs Temp Pulse Resp BP Pulse Ox O2 Del Method 10/30/22 16:43 36.6 C 63 18 115/70 96 Room Air 10/30/22 11:48 36.6 C 57 L 18 111/70 97 Room Air 10/30/22 07:40 36.7 C 63 18 125/75 97 Room Air PG Care Time/CCT Total # of Minutes Spent Total Time Spent with Patient: Total time spent is greater than 50% in coordination of care (as documented) at patient's floor/unit and/or counseling patient: Coding Level of Care Code 44221 SUB INP/OBS CARE 2/35MIN Diagnoses NSTEMI (non-ST elevated myocardial infarction) I21.4 Tobacco abuse Z72.0
[2022-10-30 18:27] LABS: Partial Thromboplastin Ratio 1.7
[2022-10-30 18:30] LABS: Partial Thromboplastin Time 47.8 Seconds (21.0-31.0)
[2022-10-30] MEDS: Heparin IV Adult Wt-Based Low-Dose WITH Bolus Protocol IV SCH ×2 (19:27→20:18)
[2022-10-31] MEDS: SODIUM CHLORIDE 0.9% 1000ML 1,000 ML IV SCH ×2 (03:58→12:05)
[2022-10-31] MEDS: HEPARIN SODIUM/DEXTROSE 25,000 UNITS/500 ML BAG IV SCH ×3 (05:24→18:34)
[2022-10-31 06:35] LABS: INR 1.1 (0.9-1.1); Partial Thromboplastin Ratio 1.6; Partial Thromboplastin Time 43.5 Seconds (21.0-31.0); Prothrombin Time 12.1 Seconds (9.0-12.0)
[2022-10-31 07:23] LABS: Estimated Average Glucose 105 mg/dl; Hemoglobin A1C 5.3 % (4.5-5.6)
[2022-10-31] MEDS: CLOPIDOGREL BISULFATE 75 MG TAB PO SCH (08:33)
[2022-10-31] MEDS: ASPIRIN 81 MG ECTAB PO SCH (08:33)
[2022-10-31] MEDS: ATORVASTATIN 40 MG TAB PO SCH (08:33)
[2022-10-31] MEDS: METOPROLOL TARTRATE 25 MG TAB PO SCH ×2 (08:33→21:00)
--- NOTE | 2022-10-31 08:33 | Pre Anesthesia Assessment ---
Date of Service October 31, 2022 Pre Sedation Assessment Vital Signs Temp Pulse Resp BP Pulse Ox O2 Del Method 10/31/22 07:05 97.7 F 57 L 18 119/72 96 Room Air 10/31/22 03:17 98.1 F 62 18 148/70 H 98 Room Air 10/30/22 23:16 98.1 F 64 18 146/75 H 97 Room Air 10/30/22 20:00 Room Air 10/30/22 20:08 98.1 F 60 20 119/74 98 Room Air 10/30/22 16:43 97.9 F 63 18 115/70 96 Room Air 10/30/22 11:48 97.9 F 57 L 18 111/70 97 Room Air Cardiovascular RRR, no murmur, no edema Respiratory normal respiratory effort, lungs clear to auscultation Pre-Sedation Airway Assessment Smoking Status: Current every day smoker Hx Sleep Apnea: No Hx Difficult Intubation: No Short, Thick Neck: No Thyromental Distance: > or= 3.5 Finger Breadths Oral Cavity: + WNL Mallampati Class: III ASA: ASA3 Procedure Planning Contraindications for Sedation: none Current Medications Reviewed: Yes Notes The planned sedation has been discussed with the patient. Informed Consent was obtained. I have identified the patient, determined the appropriateness of sedation and have assessed the patient immediately prior to the procedure. All medicine(s) and interventions are by my order.
[2022-10-31] MEDS: FAMOTIDINE 20 MG in SYRINGE 3 ML IV SCH (08:34)
[2022-10-31] MEDS: NICOTINE 21 MG/24 HR TDSY TD SCH (08:34)
[2022-10-31] MEDS ORDERED: MIDAZOLAM HCL 1 MG/ML 2ML VIAL ONE ×4 (09:09→10:51)
[2022-10-31] MEDS ORDERED: niCARdipine HCL INJ 2.5 MG/ML 10 ML AMP ONE (09:09)
[2022-10-31] MEDS ORDERED: fentaNYL citrate PF 100 MCG/2 ML VIAL ONE ×2 (09:09→10:04)
[2022-10-31] MEDS ORDERED: HEPARIN (PORCINE) 1000 UNIT/ML 10 ML (CATH LAB USE ONLY) ONE ×2 (09:09→10:46)
[2022-10-31] MEDS ORDERED: NITROGLYCERIN/D5W 100MCG/ML 20ML SYR ONE (09:10)
[2022-10-31] MEDS ORDERED: CLOPIDOGREL BISULFATE 300 MG TAB ONE (11:05)
--- NOTE | 2022-10-31 11:08 | Post Anesthesia Assessment ---
Date of Service October 31, 2022 Post Sedation Assessment Vital Signs Temp Pulse Resp BP Pulse Ox O2 Del Method 10/31/22 07:05 97.7 F 57 L 18 119/72 96 Room Air 10/31/22 03:17 98.1 F 62 18 148/70 H 98 Room Air 10/30/22 23:16 98.1 F 64 18 146/75 H 97 Room Air 10/30/22 20:00 Room Air 10/30/22 20:08 98.1 F 60 20 119/74 98 Room Air 10/30/22 16:43 97.9 F 63 18 115/70 96 Room Air 10/30/22 11:48 97.9 F 57 L 18 111/70 97 Room Air Recovery Score Activity: Moves 4 extremities Respiration: Deep Breath/Cough Circulation: +/-20% PreAnes Value Consciousness: Fully Awake Discharge Sedation Level of Care: Fast Track Phase II Post Sedation Plan On clinical assessment, the patient appears to have tolerated the sedation without complications. Patient is recovering as anticipated. Patient will continue to be monitored by nursing and may be discharged when sedation discharge criteria are met per below protocol. Upon Completions of procedure up to 15 minutes continue every 5 minute vital signs and the P.A.R. score; then discharge to a Phase I or Fast Track to Phase II per the following guidelines: * Discharge Patient to appropriate Phase II area if PAR is 8 or greater or return to pre- procedure baseline. The post - procedure orders will be as directed. * If PAR score is less than 8 or not return to pre-procedure baseline then patient will follow Phase I monitoring till PAR is reached for Phase II. The Phase I may be done in procedure room or may call to secure a Phase I area. * If naloxone or flumazenil are used for reversal, hold in Phase I for continued monitoring from when last reversal dose was given for a minimum of 60 minutes or longer pending the nurse and/or physician discretion of patient condition before discharge to Phase II. Please call the Sedation Physician to re-evaluate and complete post-note for discharge to Phase II area. Do NOT discharge from procedure sedation or Phase 1 until post- sedation evaluation note is complete by procedure /sedation MD Sedation Discharge Instructions to be given to the patient at discharge to home.
--- NOTE | 2022-10-31 11:13 | Cardiac Catheterization ---
[facility] Data: Remote Medical Coder Cardiac Status Clinical evaluation leading to the procedure CAD Presenation: Non STEMI Anginal Classification: CCS IV Diagnostic Physicians Name: Clarence Weir MD Closure Device Recommendations: PCI without planned CABG Cardiac Cath Procedure Full Procedure Date October 31, 2022 Pre-Procedure Diagnosis Pre-Procedure Diagnosis: Non STEMI AUC Score AUC Score: 8 Post-Procedure Diagnosis Post-Procedure Diagnosis: Severe CAD, Successful PCI and Normal Intracardiac Pressures Procedure(s) Performed Procedure(s) Performed: Coronary Angiography, Left Heart Cath, Drug Eluting Stent and IVUS Major Assembly Lineman Clarence Weir MD Bow Maker Machine Tender(s) Sharee Najera Estimated Blood Loss Estimated Blood Loss: 20 Medication(s) Medication(s): Clopidogrel, Fentanyl, Heparin, Lidocaine 1%, Nicardipine, Nitroglycerin and Versed Summary of Findings Indication: NSTEMI Access: 6 Fr right radial artery Catheters: [place], diagnostic JL 3.5, EBU 3.5 guide Findings: LM -normal caliber, no significant disease LAD -medium caliber, proximal luminal irregularities, 70% mid segment stenosis at takeoff of D2. Distal vessel without significant disease and extends to apex. 70% ostial stenosis of medium D2. Circumflex -large caliber, no significant disease. Medium OM 2 without disease. RCA -dominant, Large-caliber, 20 to 30% mid segment disease, distal luminal irregularities. Medium PDA, RPL without significant disease. LVEDP -16 -- IVUS/PCI of LAD-- Antithrombotic therapy: Heparin, clopidogrel Procedure: Left main cannulated with EBU 3.5 guide Pre-procedure flow NEHEMIAS 3 [place] wire placed into medium D2 Independent Driver 50 wire passed across LAD lesion into distal vessel [place] IVUS catheter placed into mid LAD. Pullback revealed focal, mildly calcified stenosis at takeoff of D2 and extending proximally to takeoff of first septal (80 to 85% by IVUS, MLA 2.1 mm). Proximal LAD/left main without significant disease. IVUS of proximal D2 showed severe, mildly calcified concentric disease at ostium. Ostium of D2 dilated with 2.0 balloon Mid LAD stented with 3.0 x 18 mm [place] drug-eluting stent D2 rewired with whisper wire through stent struts Jailed ostium of D2 dilated with 2.0 balloon Mid LAD stent postdilated with 3.5 NC Severe residual ostial D2 stenosis with sluggish flow Ostium D2 stented with 2.25 x 8 mm [place]ience drug-eluting stent (T with protrusion). Stent postdilated with stent balloon LAD stent redilated with 2.0 and 3.0 balloons Repeat IVUS showed well expanded, well apposed LAD stent with no apparent edge complications IC vasodilators administered for spasm Post procedure NEHEMIAS 3 flow, stents well expanded with minimal residual stenosis and no apparent cardiac complications. Arterial Closure: TR band Summary: 1. Severe single vessel coronary artery disease -80% mid LAD stenosis by IVUS at bifurcation with medium D2. D2 with 70% ostial stenosis 20 to 30% mid RCA disease 2. Normal intracardiac filling pressure 3. Successful PCI of mid LAD/D2 bifurcation with 2 drug-eluting stents (3.0 x 18 mm [place] LAD postdilated with 3.5 NC; 2.25 x 8 mm Xience ostial D2) Recommendations: To PCU for continued monitoring Related with clopidogrel 300 mg in Remote Medical Coder Continue dual-antiplatelet therapy for at least 1 year Continue statin, and ASCVD risk factor modification Hemodynamics Rest Ao:: 122/84/100 Final Ao: 104/70/85 LV: 111/16 Recommendations Recommendations: PCI without planned CABG Specimens Specimens: None Radiation Exposure (mGy) 5200 Contrast (mls) 150 Fluids (cc crystalloids) Fluids (cc crystalloids): 280 Anesthesia Moderate 0925 - 10/02/2004 Procedural Complication(s) None Disposition PCU I attest to the content of the Intraoperative Record and any orders documented therein. Any exceptions are noted below. [facility] Card Cath Procedure Codes Cardiac Catheterization Procedure 1: Cardiovascular Cath Procedures: 14784 Coronaries and LHC (+/-LV) Therapeutic Services & Ancillary Procedure 1: Cardiovascular Tx and Anc Procedures: 16190 IV Ultrasound (Coronary or Graft) Moderate Sedation Procedure 1: Sedation/Anesthesia: 00635 Mod Sedation by the same physician;Init15 Min Child Age 5 & Up Procedure 2: Sedation/Anesthesia: 72161 Mod Sedation by the same physician; Ea [id number] Minutes Stenting Procedure 1: Cardiovascular Stent Procedures: 80404 Perc transcatheter placement of intracoronary stent(s), with ang PG Care Time/CCT Total # of Minutes Spent Total Time Spent with Patient: Total time spent is greater than 50% in coordination of care (as documented) at patient's floor/unit and/or counseling patient:
[2022-10-31 13:49] LABS: Partial Thromboplastin Ratio 3.2
[2022-10-31 13:55] LABS: Partial Thromboplastin Time 88.6 Seconds (21.0-31.0)
[2022-10-31] MEDS: LOSARTAN POTASSIUM 25 MG TAB PO SCH (15:42)
--- NOTE | 2022-10-31 16:20 | Electrocardiogram Report ---
Test Reason : Blood Pressure : / mmHG Vent. Rate : 056 BPM Atrial Rate : 056 BPM P-R Int : 146 ms QRS Dur : 100 ms QT Int : 412 ms P-R-T Axes : 030 056 051 degrees QTc Int : 397 ms Sinus bradycardia with marked sinus arrhythmia Otherwise normal ECG When compared with ECG of 29-OCT-2022 11:30, No significant change was found Confirmed by Nate Buckner ([id number]) on 10/31/2022 4:20:07 PM Referred By: REFERRED SELF Confirmed By:Nate Buckner
--- NOTE | 2022-10-31 16:23 | Electrocardiogram Report ---
Test Reason : Blood Pressure : / mmHG Vent. Rate : 054 BPM Atrial Rate : 054 BPM P-R Int : 138 ms QRS Dur : 104 ms QT Int : 418 ms P-R-T Axes : 050 068 061 degrees QTc Int : 396 ms Sinus bradycardia Otherwise normal ECG When compared with ECG of 31-OCT-2022 11:48, (unconfirmed) No significant change was found Confirmed by Nate Buckner ([id number]) on 10/31/2022 4:22:45 PM Referred By: REFERRED SELF Confirmed By:Nate Buckner
--- NOTE | 2022-10-31 22:32 | Hospitalist Progress Note ---
Date of Service October 31, 2022 Assessment & Plan (1) NSTEMI (non-ST elevated myocardial infarction): Plan: Status postcardiac cath, severe coronary artery disease, status post stent placement, possible discharge tomorrow, stop heparin drip Currently on dual platelet agent Continue metoprolol 25 mg twice daily Continue high-dose statin therapy with Lipitor 80 mg daily Continue aspirin 81 mg and Plavix 75 mg daily Continue sublingual nitro Continue telemetry (2) Tobacco abuse: Plan: -Smokes approximately 1 PPD -Continue to stress smoking cessation -Nicotine patch Admission and Anticipated Discharge Date Admission Date: October 29, 2022 Subjective Status postcardiac cath status post stent placement severe coronary artery disease Review of Systems Review of Systems: Denies current fever, chills, headache, changes in vision, hearing, taste, and smell, chest pain, SOB, cough, abdominal pain, nausea, vomiting, diarrhea, hematemesis, melena, dysuria, hematuria, and recent falls. All systems have been reviewed and are otherwise negative. Physical Exam Physical Exam: The patient is alert and oriented. Mood and affect appeared normal. He answered all questions appropriately. HEENT: Pupils are equal and reactive to light and accommodation. Extraocular movements are intact. The sclerae are anicteric. Neuro: Cranial nerves intact Neck: Patient's neck is supple. He has palpable carotid pulses bilaterally without bruits on auscultation. There is no evidence of jugular venous distention. The thyroid is not enlarged. Lungs: Clear to auscultation bilaterally. He has good air movement without use of accessory muscles. No rales wheezes or rhonchi. Cardiac: Heart demonstrates a regular rate and rhythm. Normal S1 and S2. No murmurs on examination. Pulses: The patient has palpable radial pulses bilaterally that are equal in intensity Extremities: There was no evidence of hypoperfusion. There is no cyanosis or clubbing. There is no edema. Skin: I did not appreciate any rashes on examination today. Results & Data Results & Data ([facility]) Vital Signs (Past 12 Hours) Vital Signs Temp Pulse Resp BP BP Pulse Ox O2 Del Method 10/31/22 19:49 36.9 C 63 18 127/85 97 Room Air 10/31/22 15:23 59 L 16 117/82 98 Room Air 10/31/22 14:45 58 L 16 150/103 H 140/106 H 98 Room Air 10/31/22 14:30 59 L 16 122/86 96 Room Air 10/31/22 14:00 36.7 C 58 L 16 127/81 96 Room Air 10/31/22 13:00 54 L 16 134/85 98 Room Air 10/31/22 12:30 36.4 C L 57 L 16 119/84 97 Room Air 10/31/22 12:00 63 16 117/77 98 Room Air 10/31/22 11:45 36.4 C L 54 L 16 142/88 H 98 Room Air 10/31/22 11:30 63 16 136/80 96 Room Air 10/31/22 11:15 59 L 16 121/80 96 Room Air PG Care Time/CCT Total # of Minutes Spent Total Time Spent with Patient: Total time spent is greater than 50% in coordination of care (as documented) at patient's floor/unit and/or counseling patient: Coding Level of Care Code 57143 SUB INP/OBS CARE 2/35MIN Diagnoses NSTEMI (non-ST elevated myocardial infarction) I21.4 Tobacco abuse Z72.0
--- NOTE | 2022-10-31 22:44 | Cardiology Progress Note ---
Date of Service October 31, 2022 Assessment & Plan (1) NSTEMI (non-ST elevated myocardial infarction): Plan: Post PCI with 2 ARNULFO to LAD/diagonal bifurcation 2. Dyslipidemia 3. Tobacco abuse 4. Preserved LV function Patient doing well following PCI earlier today. Suspect minimal chest sensation to resolve this evening. Postprocedure ECG is unremarkable. No apparent access site complications. Continue DAPT with aspirin, clopidogrel for 1 year Continue metoprolol, added losartan. Continue current atorvastatin Monitor on telemetry overnight. Plan for home tomorrow. Will need to establish cardiac care at home in [place]. Admission and Anticipated Discharge Date Admission Date: October 29, 2022 Subjective Post cardiac catheterization had mild chest "feeling" on his left side, no pain. No other new concerns. Review of Systems Review of Systems: All systems reviewed & are unremarkable except as noted in HPI & below Physical Exam Physical Exam: General: Comfortable HEENT: Sclerae anicteric Lungs: Clear to auscultation bilaterally Cardiac: Regular rate and rhythm, no murmurs. Vascular: Right radial artery access site with no ecchymosis, hematoma. Distal pulse and sensation intact. Abdomen: Soft, nontender Extremities: Well perfused, no peripheral edema Neuro: Nonfocal Psych: Alert orient x3, normal affect and mood Results & Data ([facility]) Vital Signs (Past 12 Hours) Vital Signs Temp Pulse Resp BP BP Pulse Ox O2 Del Method 10/31/22 19:49 98.4 F 63 18 127/85 97 Room Air 10/31/22 15:23 59 L 16 117/82 98 Room Air 10/31/22 14:45 58 L 16 150/103 H 140/106 H 98 Room Air 10/31/22 14:30 59 L 16 122/86 96 Room Air 10/31/22 14:00 98.1 F 58 L 16 127/81 96 Room Air 10/31/22 13:00 54 L 16 134/85 98 Room Air 10/31/22 12:30 97.5 F L 57 L 16 119/84 97 Room Air 10/31/22 12:00 63 16 117/77 98 Room Air 10/31/22 11:45 97.5 F L 54 L 16 142/88 H 98 Room Air 10/31/22 11:30 63 16 136/80 96 Room Air 10/31/22 11:15 59 L 16 121/80 96 Room Air PG Care Time/CCT Total # of Minutes Spent Total Time Spent with Patient: Total time spent is greater than 50% in coordination of care (as documented) at patient's floor/unit and/or counseling patient: Coding Level of Care Code 42995 SUB INP/OBS CARE 3/50MIN Diagnoses NSTEMI (non-ST elevated myocardial infarction) I21.4
[2022-11-01] MEDS: LOSARTAN POTASSIUM 25 MG TAB PO SCH (08:24)
[2022-11-01] MEDS: METOPROLOL TARTRATE 25 MG TAB PO SCH (08:24)
[2022-11-01] MEDS: ATORVASTATIN 40 MG TAB PO SCH (08:24)
[2022-11-01] MEDS: CLOPIDOGREL BISULFATE 75 MG TAB PO SCH (08:24)
[2022-11-01] MEDS: ASPIRIN 81 MG ECTAB PO SCH (08:24)
[2022-11-01] MEDS: FAMOTIDINE 20 MG in SYRINGE 3 ML IV SCH (08:25)
[2022-11-01] MEDS: NICOTINE 21 MG/24 HR TDSY TD SCH (08:25)
--- NOTE | 2022-11-01 12:59 | Cardiology Progress Note ---
Date of Service November 01, 2022 Assessment & Plan (1) NSTEMI (non-ST elevated myocardial infarction): Plan: Post PCI with 2 ARNULFO to LAD/diagonal bifurcation 2. Dyslipidemia 3. Tobacco abuse 4. Preserved LV function Stable from a cardiac standpoint. No apparent access site complications. From a cardiac standpoint okay to discharge today. Home on: DAPT with aspirin, clopidogrel for 1 year metoprolol, losartan. current atorvastatin Will need to arrange follow-up with a rn surgery icu in [place] in 2-3 weeks. Admission and Anticipated Discharge Date Admission Date: October 29, 2022 Subjective Feeling well today. Feels his left chest but no chest pain. No shortness of breath. Telemetry unremarkable. Ready to go home. Review of Systems Review of Systems: All systems reviewed & are unremarkable except as noted in HPI & below Physical Exam Physical Exam: General: Comfortable HEENT: Sclerae anicteric Lungs: Clear to auscultation bilaterally Cardiac: Regular rate and rhythm, no murmurs. Vascular: Right radial artery access site with no ecchymosis, hematoma. Distal pulse and sensation intact. Abdomen: Soft, nontender Extremities: Well perfused, no peripheral edema Neuro: Nonfocal Psych: Alert orient x3, normal affect and mood Results & Data ([facility]) Vital Signs (Past 12 Hours) Vital Signs Temp Pulse Resp BP BP Pulse Ox O2 Del Method 11/01/22 11:31 98.4 F 62 16 107/63 96 Room Air 11/01/22 07:35 98.1 F 65 18 125/77 95 Room Air 11/01/22 03:22 98.2 F 61 18 106/71 98 Room Air PG Care Time/CCT Total # of Minutes Spent Total Time Spent with Patient: Total time spent is greater than 50% in coordination of care (as documented) at patient's floor/unit and/or counseling patient: Coding Level of Care Code 30726 SUB INP/OBS CARE 3/50MIN Diagnoses NSTEMI (non-ST elevated myocardial infarction) I21.4
--- NOTE | 2022-11-01 17:52 | Discharge Summary ---
Date of Service November 01, 2022 Admission HPI Per Admitting Provider Amirah is a 52 year old (Monegasque is his first language) male daily smoker with no other previous PMH who presented to the [facility] ED on 10/29/22 with a chief complaint of chest pain. Per the ED staff, the patient is a long-bobbin hauler from [place]. The patient was brought in by EMS, prior to arrival he was given 324 mg PO aspirin and 1 SL nitro and his symptoms resolved. In the ED the patient was found to be afebrile, hemodynamically stable, and stable on RA. Labs were remarkable for a CBC WNL, INR of 1.2, D-dimer of 580,cr of 0.99, LFTs WNL, initial high sensitivity trop of 189, chloride of 110, AG of 5 with a bicarb of 23, stable electrolytes, TSH WNL, and negative covid screen. His ECG showed Normal sinus rhythm Normal ECG When compared with ECG of 29-OCT-2022 10:17, (unconfirmed) Premature ventricular complexes are no longer Present. Chest xray was read as no acute process. The ED staff spoke with Cardiology who was in agreement with starting the patient on a Heparin drip. At the time of the exam the patient was resting comfortably in bed in no acute distress. A video manager care was used to communicate with the patient during the history and exam. He states that he began to experience an 8/10, burning pain on the left side of his chest earlier this morning. He states that the pain also radiated into his left arm. He states that he has never had this pain before and he did not take any medications to treat his symptoms. When asked, he denies previous chronic medical problems such as HTN, hyperlipidemia, DM, and asthma. He states that he was treated with an antibiotic approximately 2-3 weeks ago, he is unable to explain what type of infection he was treated for. He denies being on chronic medications either prescription or OTC. He is a current smoker, smoking 1PPD and denies alcohol and other recreational drug use. The patient confirms that he is currently without symptoms at the time of the exam. We explained that he had a heart attack and the next steps in treatment would be to start IV heparin for anticoagulation, start a Beta Vernon to help control his HR and help to prevent dangerous arrhythmias, a statin to help reduce his cholesterol, and aspirin to help with possible blockages in his coronary arteries. We explained that since his ECG is currently normal and his symptoms have resolved there is no emergent need for him to have a Heart Cath at this time. We explained that this procedure is important to help look for any treat any blockages in his coronary arteries. We explained the general steps of a heart catheterization and explained that it is not an invasive procedure like open heart surgery. The patient was still hesitant to stay as he said he was feeling better and lives close to the hospital if he needed to come back. We s consuelo recommended he stay to begin medical therapy and to be monitoring on telemetry as a new NH increases his risk of dangerous arrhythmias which could lead to increased heart damage and even . We explained that he would not be getting a heart cath immediately and reiterated that we would be initiating medical therapy and monitoring him. We explained that if he were to have returning symptoms of concerning changes in his labs or heart rhythm, these would be an indication for an emergent heart cath. We explained that if he were to leave and need to come back he would likely have to wait in the waiting room or come back from ambulance, either of which could delay life-saving treatment. The patient stated that he has a close friend who is a Physician and he wanted to speak with his friend before making a decision. We offered to stay and speak with he and his friend regarding the situation and he was in agreement. After discussions with his friend the patient is now in agreement with being admitted. He states that he is in agreement with all of our recommendations and is fine with a heart cath if needed. He denies previous allergies to any medications or other substances. He denies recent fevers, chills, headache, new cough, abdominal pain, nausea, vomiting, dysuria, hematuria and recent trauma. When asked about bloody bowel movements or melena he states that in the past he has had blood in his bowels when he drinks alcohol. He denies recent bright red blood in his stool. When asked about melena or dark stool he states that his stool may be darker but is not sure. We discussed code status, the patient wishes to be a full code. If he could not make medical decisions himself he would want is (Amanda [phone]) to make decisions. When asked, he states that his speaks Telugu and would not need an lang interpreter if we would need to call her. Please refer to Dr. Ogden's attestation for any changes to the treatment plan Principal Diagnosis Non-ST elevation NH Discharge Exam General: Comfortable HEENT: Sclerae anicteric Lungs: Clear to auscultation bilaterally Cardiac: Regular rate and rhythm, no murmurs. Vascular: Right radial artery access site with no ecchymosis, hematoma. Distal pulse and sensation intact. Abdomen: Soft, nontender Extremities: Well perfused, no peripheral edema Neuro: Nonfocal Psych: Alert orient x3, normal affect and mood ENMT Mallampati Class: III Respiratory normal respiratory effort, lungs clear to auscultation Cardiovascular RRR, no murmur, no edema Discharge Data Allergies Allergy/AdvReac Type Severity Reaction Status Date / Time No Known Allergies Allergy Unverified 10/29/22 11:39 Consultations 10/29/22 12:49 ED Decision to Admit Stat 10/29/22 14:47 Consult Cardiology Routine Procedures Performed Operation Date: 10/31/22 08:30 Actual Procedures p Cath, Left with Cors and Vent - Asher Weir MD s Drug Eluting Stent SGl Vessel - Asher Weir MD s Drug Eluting Stent each ADDTL Vessel - Asher Weir MD s IVUS Coronary Single Vessel - Asher Weir MD s IVUS Coronary each ADDL Vessel - Asher Weir MD Ordered Studies 10/31/22 07:23 CL Cath Imgs for PACS use only Routine 10/31/22 07:55 CL IVUS Coronary Single Vessel Routine Hospital Course (1) NSTEMI (non-ST elevated myocardial infarction): Status postcardiac cath, severe coronary artery disease, status post stent placement, Currently on dual platelet agent Post PCI with 2 ARNULFO to LAD/diagonal bifurcation Continue metoprolol 25 mg twice daily Continue high-dose statin therapy with Lipitor 80 mg daily Continue aspirin 81 mg and Plavix 75 mg daily The patient was discharged home today, [place], patient is advised to follow-up with a bank teller machine mechanic in his state (2) Tobacco abuse: -Smokes approximately 1 PPD -Discharged on nicotine patch Total Time Total Time Spent Total Time Spent (In Minutes): 45 Discharge Plan Discharge Items Patient Disposition: Home - Self-Care Reason For Visit: CHEST PAIN Discharge Diagnosis: Myocardial infarction Activity: Resume your previous activity Lifting: Gradually increase as tolerated Bathing: No limitations Sexual Activity: When tolerated Driving/Machine Use: No limitations Non-emergency contact: Primary Care Provider and Miniature Set Designer Call non-emergency contact if: you have any medication questions and your symptoms worsen Follow-up/Referrals: PCP,NO [Primary Care Provider] - Diet: Heart Healthy Addtl Attending Provider Instructions: you need to find a bank teller machine mechanic in your sate to follow in one month Addtl Computer Tester Provider Instructions: you MUST stop smoking Pending Studies at Discharge: No Stand-Alone Forms: My 24 Quan, Smoking Cessation Medications and DC Order Prescriptions: New nicotine [Nicoderm CQ] 21 mg/24 hr Patch 24 Hour 21 mg transdermal QAM Qty: 98 0RF Rx Instructions: 21 mg for 10 weeks then 14 mg for 2 weeks then 7 mg for 2 weeks atorvastatin 40 mg Tablet 80 mg PO QAM Qty: 90 0RF clopidogrel 75 mg Tablet 75 mg PO QAM Qty: 90 0RF metoprolol succinate 25 mg capsule,sprinkle,ER 24hr 25 mg PO DAILY Qty: 90 0RF aspirin 81 mg Tablet,Delayed Release (Dr/Ec) 81 mg PO QAM Qty: 90 0RF Discharge Orders: Discharge Order (Routine); Ordered 11/01/22 Ordered By: Iam Palma/Other Patient Handouts: All About Cholesterol Control, Heart Disease Intimacy, Cardiac Rehab Exercise, Why Do You Smoke?, Heart Attack Meds, Warning Signs of a Heart Attack, Heart Attack Questions, Heart Attack Resuming Sex Admission Data Admit Date/Time: 10/29/22 12:52 Attending Provider: Iam Morgan Admit Provider: Akhil Ogden Primary Care Provider: PCP,NO Other Providers: Akhil Ogden ; Clarence Sims Other Interventions: Discharge Summary Assessment (RN) Last Done: 11/01/22 13:20 Coding Level of Care Code HOSP INP/OBS DISCH >30 MIN Diagnoses NSTEMI (non-ST elevated myocardial infarction) I21.4 Tobacco abuse Z72.0
[2022-11-02] MEDS ORDERED: FAMOTIDINE 20 MG TAB PO SCH (09:00)
== END 2022-11-01 13:56 | disposition home or self-care (01) | DRG 247 ==
LOC: ED 10:05 → INTOOBSV 12:52 → SUATTDRO 12:52 → 2S 12:52